=== PATIENT | female | born 1950 | race Caucasian/White ===

== ENCOUNTER 2020-03-20 11:50 | Outpatient (REF) | payer MEDICARE, BC, SELFPAY ==
[2020-03-23 13:18] LABS: COVID-19 RT-PCR UVMMC Result Negative (Negative)
== END 2020-03-20 12:10 ==
LOC: NCHCN 11:50
PROVIDERS: Visit Provider Physician Assistant
DX: Z20.828 Contact with and (suspected) exposure to other viral communicable diseases (principal)
CPT/HCPCS: U0003

== ENCOUNTER 2020-05-28 13:04 | Outpatient (REF) | payer MEDICARE, BC, SELFPAY ==
[2020-05-28 15:29] LABS: HCT 43.1 % (36.0-46.0); HGB 14.2 g/dL (11.2-15.7); MCH 30.1 pg (27.0-33.0); MCHC 32.9 % (32.0-36.0); MCV 91.3 fL (80-95); MPV 11.2 fL (8.0-11.0); Platelet Count 152 10^3/uL (130-400); RBC 4.72 10^6/uL (3.93-5.22); RDW 12.5 % (11.7-14.6); RDW-SD 41.9 fL; WBC 6.76 10^3/uL (4.4-10.8)
[2020-05-28 15:53] LABS: Hemoglobin A1C 5.4 % (<5.7)
[2020-05-28 15:56] LABS: Anion Gap 8.2 mmol/L (3-11); BUN 13 mg/dL (7-18); CO2 29.8 mmol/L (21.0-32.0); CREATININE 0.8 mg/dL (0.55-1.02); Calcium 8.8 mg/dL (8.5-10.1); Chloride 104 mmol/L (98-107); Glucose 94 mg/dL (74-106); Potassium 4.1 mmol/L (3.5-5.1); Sodium 142 mmol/L (136-145); TSH 1.12 uIU/mL (0.36-3.74)
== END 2020-05-28 13:05 | disposition home or self-care (01) ==
LOC: NCHCN 13:04
PROVIDERS: Visit Provider Internal Medicine
DX: E03.9 Hypothyroidism, unspecified (principal); E78.5 Hyperlipidemia, unspecified; I10 Essential (primary) hypertension; R30.0 Dysuria; D75.1 Secondary polycythemia; Z13.1 Encounter for screening for diabetes mellitus
CPT/HCPCS: 80048; 85027; 83036; 84443; 87086

== ENCOUNTER 2020-08-06 08:32 | Outpatient (REF) | payer MEDICARE, BC, SELFPAY ==
[2020-08-06 16:37] LABS: Calculated LDL 103 mg/dL (<100); Cholesterol 182 mg/dL (<200); HDL Cholesterol 47 mg/dL (40-60); Triglyceride 161 mg/dL (<150); Vitamin B12 781 pg/mL (193-986)
== END 2020-08-06 08:33 | disposition home or self-care (01) ==
LOC: NCHCN 08:32
PROVIDERS: PCP Internal Medicine; Visit Provider Physician Assistant
DX: E78.5 Hyperlipidemia, unspecified (principal); I10 Essential (primary) hypertension; E53.8 Deficiency of other specified B group vitamins; D75.1 Secondary polycythemia
CPT/HCPCS: 80061; 82607

== ENCOUNTER 2020-08-11 06:46 | Day surgery (SDC) | payer MEDICARE, BC, SELFPAY ==
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
[2020-08-11 07:11] VITALS: BP 115/76; PULSE 54; RESP 16; TEMP 36.2; O2SAT 92
[2020-08-11] MEDS: Tropicam./Phenyleph. (1/2.5%) 5 ML BTL OS ×3 (07:27→07:39)
[2020-08-11 07:51] VITALS: BMI 39.1
--- NOTE | 2020-08-11 07:59 | W.ANESPOSTOP ---
Postoperative Evaluation Date, Time and Location Date Performed: 08/11/20 Time Performed: 09:13 Patient Location: Day Surgery Unit Vital Signs Most Recent Imported Vital Signs: Most Recent Vital Signs Temp Pulse Resp BP Pulse Ox 35.8 C L 45 L 16 115/69 93 08/11/20 08:35 08/11/20 08:35 08/11/20 08:35 08/11/20 08:35 08/11/20 08:35 Temp Pulse Resp BP Pulse Ox 36.2 C L 54 L 16 115/76 92 08/11/20 07:11 08/11/20 07:11 08/11/20 07:11 08/11/20 07:11 08/11/20 07:11 Pain Score Most Recent Pain Score: Most Recent Pain Score Pain Level 0 08/11/20 07:11 Assessment Mental Status: Awake (Alert & Oriented to Patient Baseline) Airway and Respiratory Function: Patent airway with normal (patient baseline) respiratory exam Cardiovascular Function: Hemodynamically Stable Hydration Status: Adequately Hydrated Nausea & Vomiting: No Nausea or Vomiting Pain: Pt. Denies Any Pain Peripheral Nerve Block: Patient did not receive a nerve block
[2020-08-11] MEDS: Tetracaine 0.5% 4 ML BTL OS (08:14)
[2020-08-11] MEDS: Duovisc Viscoelastic System EACH 1 EACH (08:15)
[2020-08-11] MEDS: Balanced Salt Soln.-PLUS 500 ML BAG (08:15)
[2020-08-11] MEDS: Lidocaine 1% Pres-Free 5 ML VIAL (08:16)
[2020-08-11] MEDS: Lidocaine 2% Jelly 6 ML SYR (08:16)
[2020-08-11] MEDS: Povidone-Iodine Ophth 30 ML BTL (08:18)
--- NOTE | 2020-08-11 08:34 | W.PM.DSUDISC ---
Discharge Plan Disposition Patient Disposition: HOME Condition: Good Discharge Details Reason For Visit: CATARACT Attending Provider: David Duran Primary Care Provider: Janusz Graham Clemons Meds and New Rx's Prescriptions: No Action multivitamin Tablet 1 tab PO DAILY RF: 0 atorvastatin 20 mg Tablet 20 mg PO HS RF: 0 aspirin [Aspir-81] 81 mg Tablet,Delayed Release (Dr/Ec) 81 mg PO DAILY RF: 0 calcium carbonate [Calcium 500] 500 mg calcium (1,250 mg) Tablet 500 mg PO DAILY RF: 0 levothyroxine [Synthroid] 150 mcg Tablet 150 mcg PO DAILY RF: 0 fluoxetine [Prozac] 10 mg Capsule 10 mg PO DAILY RF: 0 omeprazole 20 mg Capsule,Delayed Release(Dr/Ec) 20 mg PO DAILY RF: 0 albuterol sulfate [ProAir HFA] 90 mcg/actuation Hfa Aerosol Inhaler 1 - 2 puff INHALATION DIRECTED RF: 0 docusate sodium 250 mg Capsule 250 mg PO DAILY RF: 0 oxybutynin chloride 5 mg Tablet 5 mg PO TID RF: 0 buspirone 15 mg Tablet 15 mg PO BID RF: 0 metoprolol tartrate 25 mg Tablet 25 mg PO BID RF: 0 pregabalin [Lyrica] 150 mg Capsule 150 mg PO TID RF: 0 [place] 3 Fish Oil 900-1,400 mg Capsule,Delayed Release(Dr/Ec) 1 cap PO DAILY RF: 0 Discharge Instructions Stand Alone Forms: Post-op Topical Cataract, Tae Thao (DSU) Discharge Orders Discharge Orders: Discharge Order (Routine); Ordered 08/11/20 Ordered By: David Duran DS: Diagnosis Discharge Diagnosis (1) Nuclear sclerotic cataract of left eye: Status: Resolved (2) Cortical cataract of left eye: Status: Resolved
[2020-08-11 08:35] VITALS: BP 115/69; PULSE 45; RESP 16; TEMP 35.8; O2SAT 93
--- NOTE | 2020-08-11 08:35 | W.PM.OP ---
Date of service: 08/11/20 Time of Service: 08:36 Operative Note Operative Note DATE OF PROCEDURE: 08/11/20 PRE-OP DIAGNOSIS: Nuclear/cortical cataract, left eye POST-OP DIAGNOSIS: same PROCEDURE: Cataract extraction using phacoemulsification with intraocular lens implant, left eye SURGEON: David Duran ANESTHESIA TYPE: Local By Surgeon and MAC Refer to Anesthesia Record PATHOLOGY: none sent COMPLICATIONS: None Patient was transported to: same day Patient's condition: stable Implants: [employer] / [employer] Tecnis ZCB00 Indications: Progressive decreased vision due to cataract, left eye Procedure Description: CATARACT SURGERY OPERATIVE REPORT PREOPERATIVE DIAGNOSIS: Nuclear/cortical cataract, left eye POSTOPERATIVE DIAGNOSIS: Same OPERATION: Cataract extraction using phacoemulsification with posterior chamber intraocular lens implant, left eye. IOL: IOL Drying Machine Operator/Model: [employer] / ADAM Tecnis [id number] IOL Power: + 23.5 diopters IOL Serial Number: [id number] Optic Diameter: 6.0mm Haptic/Overall Diameter: 13.0mm PHACO INFO: Lino [employer] Vision System with OZil and Active Fluidics Cumulative Dispersed Energy (CDE): 5.74 seconds SURGEON: David Duran MD, [place] ANESTHESIA: Monitored Anesthesia Care (MAC), with local sub-tenon's anesthetic infiltration COMPLICATIONS: None SPECIMENS: None INDICATIONS FOR PROCEDURE: The patient is a 70-year-old lady with history of diminished visual acuity in both eyes secondary to the development of bilateral nuclear and cortical cataract. She is significantly symptomatic that she desires cataract surgery and attempt to improve and maximize her vision. PROCEDURE: The correct surgical eye was identified and marked as the left eye and the pupil was dilated in the preoperative area using mydriatics and cycloplegics. The dilated pupil size was 6.5 mm. She elected to proceed without oral sedation.. The patient was brought to the operating room where cardiopulmonary monitoring was instituted and surgical time-out was performed, confirming the correct operative eye and IOL power. Topical anesthesia was administered and ophthalmic povidone-iodine 5% was instilled into the conjunctival fornices. Lidocaine gel was applied to the cornea and the riley-ocular area was prepped with Betadine 10% solution and draped in the usual sterile fashion for intraocular surgery, including an aperture drape. A Tegaderm transparent film dressing was cut in half and used to cover the lashes and lid margins. Care was taken to sequester the lashes and lid margins under the Tegaderm dressing. A lid speculum was placed between the lids of the operative eye and the Darian-Kandi operating microscope was maneuvered into position. Shital scissors were then used to make a conjunctival buttonhole approximately 6mm posterior to the limbus in the inferonasal quadrant. Blunt dissection was carried out to expose bare sclera, and a blunt-tipped sub-tenon?s anesthesia cannula was introduced and passed posteriorly along the globe where non-preserved plain lidocaine was injected into posterior sub-Tenon?s space. A sideport knife was used to make a paracentesis port superior/superiortemporally. Intraocular phenylephrine/lidocaine was injected into the anterior chamber. The anterior chamber was then filled with viscoelastic. A 2.4mm keratome knife was used to create a half-thickness groove at the limbus and then to construct a three-plane near-clear corneal tunnel extending 2.0mm into clear cornea in the temporal position. . A flap was raised on the anterior capsule and capsulorhexis forceps were used to complete a continuous curvilinear capsulorhexis of 5.5 mm. Balanced salt solution was then used to perform cortical cleaving hydrodissection and nuclear hydrodelineation until the lens could be freely rotated within the capsular bag. The lens nucleus was then disassembled and removed within the capsular bag and iris plane using phacoemulsification. Residual cortical material was removed using the 45-degree angled silicone I/A tip with 0.3mm port. The posterior capsule was carefully polished to remove as much residual lens epithelial cells as safely possible. The capsular bag was then inflated and the anterior chamber deepened with viscoelastic. The lens implant described above was inserted into the capsular bag using the ADAM [place] Injector. A Kuglen hook was used to dial the IOL into position. Residual viscoelastic was then removed first from posterior to the IOL, then from the anterior chamber using the I/A handpiece. The lens implant was noted to center nicely within the capsular bag. The incisions were stromally hydrated, and the anterior chamber was reformed using BSS. Then 0.5cc of moxifloxacin 1.0mg/ml were injected into the capsular bag and anterior chamber. The incisions were checked with a Weck spear and found to be secure. Several drops of ophthalmic povidone-iodine 5% were then applied to the eye followed by two drops of Imprimis combination prednisolone/moxifloxacin/nepafenac solution. The drapes were removed and a clear plastic protective eye shield was placed over the eye. The patient was then returned to Same Day Surgery in stable condition.
== END 2020-08-11 08:55 | disposition home or self-care (01) ==
PROVIDERS: PCP Internal Medicine; Visit Provider Ophthalmology
PROC: (CPT 66984; principal; 2020-08-11 08:30)
DX: H25.12 Age-related nuclear cataract, left eye (principal)
CPT/HCPCS: 66984; V2632

== ENCOUNTER 2020-08-25 06:47 | Day surgery (SDC) | payer MEDICARE, BC, SELFPAY ==
[2020-08-25 07:10] VITALS: BP 129/80; PULSE 51; RESP 16; TEMP 36.3; O2SAT 94
[2020-08-25] MEDS: Tropicam./Phenyleph. (1/2.5%) 5 ML BTL OD ×3 (07:21→07:32)
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
[2020-08-25 07:56] VITALS: BMI 40.7
[2020-08-25] MEDS: Balanced Salt Soln.-PLUS 500 ML BAG (08:20)
[2020-08-25] MEDS: Tetracaine 0.5% 4 ML BTL OD (08:20)
[2020-08-25] MEDS: Lidocaine 2% Jelly 6 ML SYR (08:21)
[2020-08-25] MEDS: Duovisc Viscoelastic System EACH 1 EACH (08:21)
[2020-08-25] MEDS: Lidocaine 1% Pres-Free 5 ML VIAL (08:21)
[2020-08-25] MEDS: Povidone-Iodine Ophth 30 ML BTL (08:24)
--- NOTE | 2020-08-25 08:36 | PDOC.DSDIS_ITS ---
Discharge Plan Disposition Patient Disposition: HOME Condition: Good Discharge Details Reason For Visit: CATARACT Attending Provider: David Duran Primary Care Provider: Janusz Graham [place] Meds and New Rx's Prescriptions: No Action multivitamin Tablet 1 tab PO DAILY RF: 0 atorvastatin 20 mg Tablet 20 mg PO HS RF: 0 aspirin [Aspir-81] 81 mg Tablet,Delayed Release (Dr/Ec) 81 mg PO DAILY RF: 0 calcium carbonate [Calcium 500] 500 mg calcium (1,250 mg) Tablet 500 mg PO DAILY RF: 0 levothyroxine [Synthroid] 150 mcg Tablet 150 mcg PO DAILY RF: 0 fluoxetine [Prozac] 10 mg Capsule 10 mg PO DAILY RF: 0 omeprazole 20 mg Capsule,Delayed Release(Dr/Ec) 20 mg PO DAILY RF: 0 albuterol sulfate [ProAir HFA] 90 mcg/actuation Hfa Aerosol Inhaler 1 - 2 puff INHALATION DIRECTED RF: 0 docusate sodium 250 mg Capsule 250 mg PO DAILY RF: 0 oxybutynin chloride 5 mg Tablet 5 mg PO TID RF: 0 buspirone 15 mg Tablet 15 mg PO BID RF: 0 metoprolol tartrate 25 mg Tablet 25 mg PO BID RF: 0 pregabalin [Lyrica] 150 mg Capsule 150 mg PO TID RF: 0 [place] 3 Fish Oil 900-1,400 mg Capsule,Delayed Release(Dr/Ec) 1 cap PO DAILY RF: 0 Discharge Instructions Stand Alone Forms: Post-op Topical Cataract, Tae Thao (DSU) Discharge Orders Discharge Orders: Discharge Order (Routine); Ordered 08/25/20 Ordered By: David Duran DS: Diagnosis Discharge Diagnosis (1) Nuclear sclerotic cataract of right eye: Status: Resolved (2) Cortical cataract of right eye: Status: Resolved
--- NOTE | 2020-08-25 08:36 | W.PM.OP ---
Date of service: 08/25/20 Time of Service: 08:36 Operative Note Operative Note DATE OF PROCEDURE: 08/25/20 PRE-OP DIAGNOSIS: Nuclear/cortical cataract, right eye POST-OP DIAGNOSIS: same PROCEDURE: Cataract extraction using phacoemulsification with intraocular lens implant, right eye SURGEON: David Duran ANESTHESIA TYPE: Local By Surgeon and MAC Refer to Anesthesia Record ESTIMATED BLOOD LOSS: 0 PATHOLOGY: none sent COMPLICATIONS: None Patient was transported to: same day Patient's condition: stable Implants: [employer] / [employer] Tecnis ZCB00 intraocular lens Indications: Progressive decreased vision due to cataract, right eye Procedure Description: CATARACT SURGERY OPERATIVE REPORT PREOPERATIVE DIAGNOSIS: Nuclear/cortical cataract, right eye POSTOPERATIVE DIAGNOSIS: Same OPERATION: Cataract extraction using phacoemulsification with posterior chamber intraocular lens implant, right eye. IOL: IOL Frame Assembler/Model: [employer] / ADAM [employer] ZCB00 IOL Power: + 23.0 diopters IOL Serial Number: [id number] Optic Diameter: 6.0mm Haptic/Overall Diameter: 13.0mm PHACO INFO: Lino [employer]ion Vision System with OZil and Active Fluidics Cumulative Dispersed Energy (CDE): 5.17 seconds SURGEON: David Duran MD, [place] ANESTHESIA: Monitored Anesthesia Care (MAC), with local sub-tenon's anesthetic infiltration COMPLICATIONS: None SPECIMENS: None INDICATIONS FOR PROCEDURE: The patient is a 70-year-old lady with history of diminished visual acuity in both eyes secondary to the development of bilateral nuclear and cortical cataract. She has already undergone cataract surgery in the left eye and is doing well postoperatively. She now presents for cataract surgery in the right eye. PROCEDURE: The correct surgical eye was identified and marked as the right eye and the pupil was dilated in the preoperative area using mydriatics and cycloplegics. The dilated pupil size was 7.0 mm. She elected to proceed without oral sedation. The patient was brought to the operating room where cardiopulmonary monitoring was instituted and surgical time-out was performed, confirming the correct operative eye and IOL power. Topical anesthesia was administered and ophthalmic povidone-iodine 5% was instilled into the conjunctival fornices. Lidocaine gel was applied to the cornea and the riley-ocular area was prepped with Betadine 10% solution and draped in the usual sterile fashion for intraocular surgery, including an aperture drape. A Tegaderm transparent film dressing was cut in half and used to cover the lashes and lid margins. Care was taken to sequester the lashes and lid margins under the Tegaderm dressing. A lid speculum was placed between the lids of the operative eye and the Darian-Kandi operating microscope was maneuvered into position. Shital scissors were then used to make a conjunctival buttonhole approximately 6mm posterior to the limbus in the inferonasal quadrant. Blunt dissection was carried out to expose bare sclera, and a blunt-tipped sub-tenon?s anesthesia cannula was introduced and passed posteriorly along the globe where non-preserved plain lidocaine was injected into posterior sub-Tenon?s space. A sideport knife was used to make a paracentesis port inferiortemporally. Intraocular phenylephrine/lidocaine was injected into the anterior chamber. The anterior chamber was then filled with viscoelastic. A 2.4mm keratome knife was used to create a half-thickness groove at the limbus and then to construct a three-plane near-clear corneal tunnel extending 2.0mm into clear cornea in the superiortemporal position. . A flap was raised on the anterior capsule and capsulorhexis forceps were used to complete a continuous curvilinear capsulorhexis of 5.5 mm. Balanced salt solution was then used to perform cortical cleaving hydrodissection and nuclear hydrodelineation until the lens could be freely rotated within the capsular bag. The lens nucleus was then disassembled and removed within the capsular bag and iris plane using phacoemulsification. Residual cortical material was removed using the I/A handpiece. The posterior capsule was carefully polished to remove as much residual lens epithelial cells as safely possible. There were some residual adherent cortical strands which could not be safely removed. The capsular bag was then inflated and the anterior chamber deepened with viscoelastic. The lens implant described above was inserted into the capsular bag using the ADAM [place] Injector. A Kuglen hook was used to dial the IOL into position. Residual viscoelastic was then removed first from posterior to the IOL, then from the anterior chamber using the I/A handpiece. The lens implant was noted to center nicely within the capsular bag. The incisions were stromally hydrated, and the anterior chamber was reformed using BSS. Then 0.5cc of moxifloxacin 1.0mg/ml were injected into the capsular bag and anterior chamber. The incisions were checked with a Weck spear and found to be secure. Several drops of ophthalmic povidone-iodine 5% were then applied to the eye followed by two drops of Imprimis combination prednisolone/moxifloxacin/nepafenac solution. The drapes were removed and a clear plastic protective eye shield was placed over the eye. The patient was then returned to Same Day Surgery in stable condition.
[2020-08-25 08:39] VITALS: BP 110/68; PULSE 44; RESP 20; TEMP 36.4; O2SAT 97
--- NOTE | 2020-08-25 08:43 | W.ANESPOSTOP ---
Postoperative Evaluation Date, Time and Location Date Performed: 08/25/20 Time Performed: 08:43 Patient Location: Day Surgery Unit Vital Signs Most Recent Imported Vital Signs: Most Recent Vital Signs Temp Pulse Resp BP Pulse Ox 36.4 C L 44 L 20 110/68 97 08/25/20 08:39 08/25/20 08:39 08/25/20 08:39 08/25/20 08:39 08/25/20 08:39 Pain Score Most Recent Pain Score: Most Recent Pain Score Pain Level 0 08/25/20 08:39 Assessment Mental Status: Awake (Alert & Oriented to Patient Baseline) Airway and Respiratory Function: Patent airway with normal (patient baseline) respiratory exam Cardiovascular Function: Hemodynamically Stable Hydration Status: Adequately Hydrated Nausea & Vomiting: No Nausea or Vomiting Pain: Pt. Denies Any Pain Peripheral Nerve Block: Patient did not receive a nerve block
== END 2020-08-25 09:00 | disposition home or self-care (01) ==
PROVIDERS: PCP Internal Medicine; Visit Provider Ophthalmology
PROC: (CPT 66984; principal; 2020-08-25 08:15)
DX: H25.11 Age-related nuclear cataract, right eye (principal); J44.9 Chronic obstructive pulmonary disease, unspecified; I10 Essential (primary) hypertension
CPT/HCPCS: 66984; V2632

== ENCOUNTER 2020-10-28 16:48 | Outpatient (REF) | payer MEDICARE, BC, SELFPAY ==
[2020-10-28 18:48] LABS: HCT 41.9 % (36.0-46.0); HGB 13.7 g/dL (11.2-15.7); MCH 28.5 pg (27.0-33.0); MCHC 32.7 % (32.0-36.0); MCV 87.3 fL (80-95); MPV 11.3 fL (8.0-11.0); Platelet Count 133 10^3/uL (130-400); RDW 12.6 % (11.7-14.6); RDW-SD 40.3 fL; WBC 8.06 10^3/uL (4.4-10.8)
[2020-10-28 19:01] LABS: Uric Acid 7.1 mg/dL (2.6-6.0)
== END 2020-10-28 16:49 | disposition home or self-care (01) ==
LOC: NCHCN 16:48
PROVIDERS: PCP Internal Medicine; Visit Provider Nurse Practitioner Family
DX: M25.572 Pain in left ankle and joints of left foot (principal)
CPT/HCPCS: 85027; 84550